=== PATIENT | female | born 1980 | race Caucasian/White ===

== ENCOUNTER 2016-12-23 16:31 | Outpatient (CLI) | payer OTHER | END 2016-12-23 17:25 | disposition home or self-care (01) | DX: O48.0 Post-term pregnancy (principal); Z3A.41 41 weeks gestation of pregnancy ==

== ENCOUNTER 2016-12-24 08:49 | Inpatient (IN) | payer OTHER ==
[2016-12-24] MEDS ORDERED: OXYTOCIN 10 UNIT/ML VIAL ONE (12:44)
[2016-12-24] MEDS ORDERED: WITCH HAZEL/GLYCERIN 1 EACH MED..PAD TOP PRN (13:50)
[2016-12-24] MEDS ORDERED: OXYTOCIN 10 UNIT/ML VIAL IM ONE (13:50)
[2016-12-24] MEDS ORDERED: OXYTOCIN/LACTATED RINGERS 250 ML IV ONE (13:50)
[2016-12-24] MEDS ORDERED: ONDANSETRON ODT 4 MG TABLET TL PRN (13:50)
[2016-12-24] MEDS ORDERED: HYDROCORTISONE/PRAMOXINE 10 GM PR PRN (13:50)
[2016-12-24] MEDS: IBUPROFEN 600 MG TABLET PO SCH ×2 (15:54→21:31)
[2016-12-24] MEDS: DOCUSATE SODIUM 100 MG CAPSULE PO SCH (21:31)
[2016-12-25] MEDS: IBUPROFEN 600 MG TABLET PO SCH ×2 (04:45→10:27)
[2016-12-25] MEDS ORDERED: SERTRALINE 50 MG TABLET PO SCH (09:00)
[2016-12-25] MEDS: DOCUSATE SODIUM 100 MG CAPSULE PO SCH (09:01)
== END 2016-12-25 14:10 | disposition home or self-care (01) | DRG 775 ==
PROC: 10E0XZZ Delivery of Products of Conception, External Approach (ICD-10-PCS; principal; 2016-12-24)
DX: O48.0 Post-term pregnancy (principal); O62.3 Precipitate labor; Z3A.41 41 weeks gestation of pregnancy; Z37.0 Single live birth